=== PATIENT | female | born 1970 | race Caucasian/White ===

== ENCOUNTER 2024-06-07 10:58 | Outpatient (CLI) | payer OTHER, SELFPAY | END 2024-06-07 10:59 | disposition home or self-care (01) | LOC: NFLDREF 06-11 10:02 | PROVIDERS: Visit Provider Physician Assistant | DX: N39.0 Urinary tract infection, site not specified (principal) | CPT/HCPCS: 87086; 87186 ==

== ENCOUNTER 2025-08-19 09:50 | Outpatient (CLI) | payer OTHER, SELFPAY | END 2025-08-19 09:51 | disposition home or self-care (01) | LOC: NFLDREF 08-24 17:19 | PROVIDERS: Visit Provider Physician Assistant | DX: N30.01 Acute cystitis with hematuria (principal) | CPT/HCPCS: 87086 ==